=== PATIENT | male | born 1950 | race Hispanic/Latino ===

== ENCOUNTER → 2018-03-16 | Day surgery (SDC) | payer MEDICARE, OTHER ==
[2018-03-14 11:15] LABS: BASOPHILS # (AUTO) 0.1 (0.0-0.1); BASOPHILS % 0.6 % (0.0-1.0); EOSINOPHILS # (AUTO) 0.1 (0.0-0.4); EOSINOPHILS % 1.3 % (0.0-6.0); HEMATOCRIT 40.1 % (38.2-49.6); HEMOGLOBIN 13.9 g/dL (14.0-18.0); LYMPHOCYTES # (AUTO) 1.9 (1.0-3.2); LYMPHOCYTES % 22.4 % (18.0-39.1); MEAN CORPUSCULAR HGB CONC 34.7 g/dL (31-35); MEAN CORPUSCULAR VOLUME 86.4 fL (81-99); MONOCYTES # (AUTO) 0.8 (0.2-0.8); MONOCYTES % 9.3 % (4.4-11.3); NEUTROPHILS # (AUTO) 5.6 (2.1-6.9); PLATELET COUNT 218 x10e3/uL (140-360); RED BLOOD COUNT 4.64 x10e6/uL (4.3-5.7); RED CELL DISTRIBUTION WIDTH 13.1 % (11.7-14.4)
--- NOTE | 2018-03-14 11:31 | Diagnostic Imaging Report ---
PROCEDURE: Frontal and lateral views of the chest. COMPARISON: None. INDICATIONS: PRE OPERATIVE CHEST X-RAY FOR URETERAL STONES FINDINGS: Lines/tubes: None. Lungs: The lungs are well inflated. There is no evidence of pneumonia or pulmonary edema. There is mild streaky left lower lobe opacity. Pleura: There is no pleural effusion or pneumothorax. Heart and mediastinum: Normal heart size. Mild tortuosity of the thoracic aorta. Bones: No acute bony abnormality. Multilevel degenerative changes in thoracic spine. IMPRESSION: Streaky left lower lobe opacity may represent atelectasis or scarring. Recommend followup radiographs in a few weeks to ensure resolution. Dictated by: Rito Shay M.D. on 03/14/2018 at 11:37 Electronically approved by: Rito Shay M.D. on 03/14/2018 at 11:37
[2018-03-14 11:32] LABS: ANION GAP 14.8 mmol/L (8-16); CALCIUM 9.6 mg/dL (8.4-10.2); CREATININE, SERUM 1.76 mg/dL (0.72-1.25); POTASSIUM 3.8 mmol/L (3.5-5.1)
[~2018-03-16] MED LIST: ATORVASTATIN CA20 MG PO; CEFTRIAXONE SOD 1 GM VIAL ONE; CITALOPRAM HBR20 MG PO; DEXAMETHASONE SOD PHOS INJ 4 MG/ML VIAL ONE; EPHEDRINE SULFATE INJ 50 MG/10 ML SYR ONE; FENTANYL CITRATE/PF 100MCG/2 ML INJ ONE; GLYCOPYRROLATE INJ 1MG/ 5 ML SYR ONE; IOPAMIDOL 300MG/ML 50ML INFUS..BTL IV ONE; LIDOCAINE HCL 2% LOCAL INJ 5 ML SDV VIAL INJ ONE; LOSARTAN POTAS100 MG PO; MECLIZINE HCL12.5 MG PO; MIDAZOLAM HCL 2 MG/2 ML VIAL ONE; ONDANSETRON HCL INJ 2 MG/ML VIAL ONE; PANTOPRAZOLE SO40 MG PO; PROPOFOL IV EMULSION 10 MG/ML 20 ML VIAL ONE; SEVOFLURANE INHAL SOLN 250 ML PEN BTL ONE
--- NOTE | 2018-03-20 08:59 | Operative Report ---
DATE OF PROCEDURE: March 16, 2018 PREOPERATIVE DIAGNOSIS: Left distal ureteral stones. POSTOPERATIVE DIAGNOSIS: Left distal ureteral stones. OPERATIVE PROCEDURES PERFORMED: 1. Cystoscopy. 2. Left retrograde pyelogram. 3. Left ureteroscopy with stone extraction. 4. Placement of left ureteral stent. ANESTHESIA: General anesthesia. ESTIMATED BLOOD LOSS: Minimal. INDICATIONS: Mr. Tono Avilez is a 67-year-old gentleman with left flank pain, nausea, and vomiting, found to have a left distal ureteral stone on CAT scan. He now presents for definitive surgical management of this problem. PROCEDURE IN DETAIL: The patient was brought into the operating room and placed in supine position. After administration of general anesthesia, was placed in dorsal lithotomy position, and prepped and draped in usual sterile fashion. Cystourethroscopy was performed using a 21-Burkinan cystoscope. The anterior and posterior urethra were noted to be normal. The prostate revealed evidence of trilobar hyperplasia with moderate elevation of the median bar. The bladder was entered with mild difficulty. Upon entrance into the bladder, the ureteral orifices were in normal anatomical position and produced clear efflux. The left ureteral orifice was initially difficult to cannulate and seemed more narrowed than the right ureteral orifice. There were no mucosal lesions identified. There were grade 1 trabeculations noted throughout the bladder wall. Using a 5-Burkinan open-ended catheter, a left retrograde pyelogram was performed. This revealed narrowing of the distal ureter right at the ureterovesical junction and dilation approximately 2 cm proximal to it by multiple calcifications approximately 1 cm in diameter. A 0.035 wire was placed across the ureteral orifice up into the left renal pelvis under fluoroscopic guidance, and the ureteral orifice dilated with a balloon. Murky material was seen exiting the ureteral orifice upon dilation. Rigid ureteroscopy was then performed. The previous stone was seen in the distal ureter and this was grasped with a basket and removed in its entirety. Multiple smaller stones were irrigated free. Ureteroscopy up to the region of the ureteropelvic junction revealed no other calcifications or stones. Retrograde revealed no obvious calcifications in the renal pelvis. The ureteroscope was subsequently removed and a 6-Burkinan stent for his height was placed such that 1 coil was left in the renal pelvis and the subsequent coil was left in the bladder. The string was allowed to exit the urethral meatus. The bladder was then drained in its entirety, and the cystoscope and sheath were removed. The patient was returned to supine position and anesthesia was reversed. He was transferred to a bed and taken to the postanesthesia care unit in good condition. Of note, the needle and instrument counts were correct at the conclusion of the case. Job#: [id number]
== END | disposition home or self-care (01) ==
LOC: OR 10:12
PROVIDERS: ATTEND Urology
DX: N20.1 Calculus of ureter (principal); N40.0 Benign prostatic hyperplasia without lower urinary tract symptoms; N32.89 Other specified disorders of bladder; I69.354 Hemiplegia and hemiparesis following cerebral infarction affecting left non-dominant side; I10 Essential (primary) hypertension; I45.10 Unspecified right bundle-branch block; E78.00 Pure hypercholesterolemia, unspecified; R00.1 Bradycardia, unspecified; J98.11 Atelectasis; F17.210 Nicotine dependence, cigarettes, uncomplicated; Z88.0 Allergy status to penicillin; Z01.810 Encounter for preprocedural cardiovascular examination; Z01.812 Encounter for preprocedural laboratory examination; Z01.818 Encounter for other preprocedural examination; Z79.82 Long term (current) use of aspirin; Z68.31 Body mass index [BMI] 31.0-31.9, adult
CPT/HCPCS: 36415; 52332; 52352; 71046; 74420; 80048; 85025; 88300; 93005; J0696; J1100; J2001; J2250; J2405; J3490; Q9967

== ENCOUNTER 2024-10-16 14:32 | Inpatient (IN) | payer MEDICARE ==
[~2024-10-16] VITALS: Ht 172.7 cm; Wt 81.6 kg
[~2024-10-16 14:32] MED LIST changes: -CEFTRIAXONE SOD 1 GM VIAL ONE; +COZAAR25 MG PO; -DEXAMETHASONE SOD PHOS INJ 4 MG/ML VIAL ONE; -EPHEDRINE SULFATE INJ 50 MG/10 ML SYR ONE; -FENTANYL CITRATE/PF 100MCG/2 ML INJ ONE; +FLOMAX0.4 MG PO; -GLYCOPYRROLATE INJ 1MG/ 5 ML SYR ONE; -IOPAMIDOL 300MG/ML 50ML INFUS..BTL IV ONE; +LEVOFLOXACIN500 MG PO; -LIDOCAINE HCL 2% LOCAL INJ 5 ML SDV VIAL INJ ONE; +METOPROLOL SUCC50 MG PO; -MIDAZOLAM HCL 2 MG/2 ML VIAL ONE; +MYRBETRIQ50 MG PO; -ONDANSETRON HCL INJ 2 MG/ML VIAL ONE; -PROPOFOL IV EMULSION 10 MG/ML 20 ML VIAL ONE; +PYRIDIUM100 MG PO; -SEVOFLURANE INHAL SOLN 250 ML PEN BTL ONE
[2024-10-16 15:12] VITALS: TEMP 98.5
[2024-10-16 16:15] VITALS: PULSE 69; RESP 18
[2024-10-16] MEDS: ONDANSETRON HCL INJ 2MG/ML 2ML 2 MG/ML VIAL IV PRN (16:16)
[2024-10-16] MEDS: SODIUM CHLORIDE 0.9% 1000ML 1,000 ML IV SCH (16:17)
[2024-10-16] MEDS: Morphine 4mg INJECTION 4 MG/ML INJ IV PRN (16:17)
[2024-10-16 16:29] LABS: BASOPHILS % 0.5 % (0.0-1.0); EOSINOPHILS % 0.5 % (0.0-6.0); HEMATOCRIT 34.7 % (38.2-49.6); HEMOGLOBIN 11.5 g/dL (14.0-18.0); LYMPHOCYTES # (AUTO) 0.9 (1.0-3.2); LYMPHOCYTES % 11.6 % (18.0-39.1); MEAN CORPUSCULAR HGB CONC 33.1 g/dL (31-35); MEAN CORPUSCULAR VOLUME 84.4 fL (81-99); MONOCYTES # (AUTO) 1.1 (0.2-0.8); MONOCYTES % 13.6 % (4.4-11.3); NEUTROPHILS # (AUTO) 5.8 (2.1-6.9); NEUTROPHILS % 73.5 % (38.7-80.0); PLATELET COUNT 237 x10e3/uL (140-360); RED BLOOD COUNT 4.11 x10e6/uL (4.3-5.7); RED CELL DISTRIBUTION WIDTH 14.2 % (11.7-14.4); WHITE BLOOD COUNT 7.87 x10e3/uL (4.8-10.8)
[2024-10-16 16:39] LABS: ALBUMIN 2.8 g/dL (3.5-5.0); ALBUMIN/GLOBULIN RATIO 0.7 (0.8-2.0); ANION GAP 10.9 mmol/L (8-16); BILIRUBIN,TOTAL 0.6 mg/dL (0.2-1.2); CALCIUM 8.6 mg/dL (8.4-10.2); CREATININE, SERUM 1.2 mg/dL (0.72-1.25); TOTAL PROTEIN 6.8 g/dL (6.5-8.1)
[2024-10-16 16:43] LABS: POTASSIUM 2.9 mmol/L (3.5-5.1)
[2024-10-16 17:20] VITALS: PULSE 74; RESP 20; O2SAT 98
[2024-10-16 17:31] VITALS: BP 151/67; PULSE 69; RESP 18; TEMP 98.3; O2SAT 100
[2024-10-16 20:00] VITALS: BP 151/67; PULSE 69; RESP 18; TEMP 98.3; O2SAT 100
[2024-10-16] MEDS: CEFEPIME 2 GM in SODIUM CHLORIDE 0.9% 100 ML IV SCH (21:28)
[2024-10-17] VITALS (9 sets, daily range): BP systolic 129–159; BP diastolic 66–82; PULSE 59–67; RESP 16–20; TEMP 97.5–98.5; O2SAT 99–100
[2024-10-17 05:11] LABS: BASOPHILS % 0.7 % (0.0-1.0); EOSINOPHILS # (AUTO) 0.1 (0.0-0.4); EOSINOPHILS % 1.1 % (0.0-6.0); HEMOGLOBIN 11.2 g/dL (14.0-18.0); LYMPHOCYTES # (AUTO) 0.8 (1.0-3.2); MEAN CORPUSCULAR HEMOGLOBIN 28.5 pg (28-32); MEAN CORPUSCULAR HGB CONC 32.9 g/dL (31-35); MEAN CORPUSCULAR VOLUME 86.5 fL (81-99); MONOCYTES # (AUTO) 0.9 (0.2-0.8); NEUTROPHILS # (AUTO) 3.5 (2.1-6.9); NEUTROPHILS % 65.8 % (38.7-80.0); PLATELET COUNT 197 x10e3/uL (140-360); RED BLOOD COUNT 3.93 x10e6/uL (4.3-5.7); RED CELL DISTRIBUTION WIDTH 14.1 % (11.7-14.4); WHITE BLOOD COUNT 5.35 x10e3/uL (4.8-10.8)
[2024-10-17 05:33] LABS: ANION GAP 12.3 mmol/L (8-16); CALCIUM 8.3 mg/dL (8.4-10.2)
[2024-10-17 05:35] LABS: POTASSIUM 3.3 mmol/L (3.5-5.1)
[2024-10-17] MEDS ORDERED: POTASSIUM CHLORIDE 20 MEQ TAB CR PO STA (07:43)
[2024-10-17] MEDS ORDERED: POTASSIUM CHLORIDE 20 MEQ TAB CR PO ONE (07:43)
[2024-10-17] MEDS: POTASSIUM CHLORIDE 20 MEQ TAB CR PO ONE (08:32)
[2024-10-17] MEDS ORDERED: LIDOCAINE HCL 2% LOCAL INJ 5 ML SDV VIAL INJ ONE (09:28)
[2024-10-17] MEDS ORDERED: FENTANYL CITRATE/PF 100MCG/2 ML INJ ONE (09:28)
[2024-10-17] MEDS ORDERED: PROPOFOL IV EMULSION 10 MG/ML 20 ML VIAL ONE (09:28)
[2024-10-17] MEDS ORDERED: ACETAMINOPHEN 1000 MG/100 ML 100 ML IV ONE (09:28)
[2024-10-17] MEDS ORDERED: SEVOFLURANE INHAL SOLN 250 ML PEN BTL ONE (09:28)
[2024-10-17] MEDS ORDERED: ONDANSETRON HCL INJ 2MG/ML 2ML 2 MG/ML VIAL ONE (11:43)
[2024-10-17] MEDS ORDERED: DEXAMETHASONE SOD PHOS INJ 4 MG/ML SDV ONE (11:43)
[2024-10-17] MEDS ORDERED: EPHEDRINE SULFATE INJ 50 MG/ML VIAL ONE (12:00)
[2024-10-17] MEDS ORDERED: LACTATED RINGER'S 1,000 ML ONE (13:08)
[2024-10-17] MEDS: METOPROLOL SUCCINATE 50 MG TAB XL PO SCH (21:51)
[2024-10-18] VITALS (8 sets, daily range): BP systolic 137–163; BP diastolic 64–78; PULSE 54–76; RESP 16–20; TEMP 97.7–98.4; O2SAT 98–100
[2024-10-18 05:23] LABS: BASOPHILS % 0.2 % (0.0-1.0); HEMATOCRIT 34.7 % (38.2-49.6); HEMOGLOBIN 11.4 g/dL (14.0-18.0); LYMPHOCYTES # (AUTO) 0.6 (1.0-3.2); LYMPHOCYTES % 6.2 % (18.0-39.1); MEAN CORPUSCULAR HEMOGLOBIN 27.9 pg (28-32); MEAN CORPUSCULAR HGB CONC 32.9 g/dL (31-35); MONOCYTES # (AUTO) 0.8 (0.2-0.8); NEUTROPHILS % 85.4 % (38.7-80.0); PLATELET COUNT 239 x10e3/uL (140-360); RED BLOOD COUNT 4.08 x10e6/uL (4.3-5.7); RED CELL DISTRIBUTION WIDTH 14.1 % (11.7-14.4); WHITE BLOOD COUNT 9.38 x10e3/uL (4.8-10.8)
[2024-10-18 06:10] LABS: ANION GAP 12.4 mmol/L (8-16); CALCIUM 8.5 mg/dL (8.4-10.2); CREATININE, SERUM 0.89 mg/dL (0.72-1.25)
[2024-10-18 06:14] LABS: POTASSIUM 3.4 mmol/L (3.5-5.1)
[2024-10-18] MEDS ORDERED: METOPROLOL SUCCINATE 50 MG TAB XL PO SCH (09:00)
[2024-10-19 03:36] VITALS: BP 143/67; PULSE 61; RESP 16; TEMP 98.3; O2SAT 99
[2024-10-19 04:33] VITALS: BP 152/76; PULSE 54; RESP 16; TEMP 97.5; O2SAT 100
[2024-10-19 08:00] VITALS: BP 146/57; PULSE 52; RESP 20; TEMP 97.7; O2SAT 100
[2024-10-19 10:19] VITALS: BP 146/57; PULSE 58; RESP 20; TEMP 97.7; O2SAT 100
[2024-10-19 12:00] VITALS: BP 133/53; PULSE 57; RESP 15; TEMP 98; O2SAT 99
[2024-10-19 16:00] VITALS: BP 142/62; PULSE 61; RESP 16; TEMP 98.2; O2SAT 100
== END 2024-10-19 20:28 | DRG 699 ==
LOC: ER 15:55 → ERHOLD 15:56 → MED/SURG 17:28
PROVIDERS: ADMIT Internal Medicine; ATTEND Internal Medicine
DX: T83.593A Infection and inflammatory reaction due to other urinary stents, initial encounter (principal); I69.354 Hemiplegia and hemiparesis following cerebral infarction affecting left non-dominant side; N17.9 Acute kidney failure, unspecified; N13.6 Pyonephrosis; I12.9 Hypertensive chronic kidney disease with stage 1 through stage 4 chronic kidney disease, or unspecified chronic kidney disease; N18.9 Chronic kidney disease, unspecified; D63.1 Anemia in chronic kidney disease; E78.5 Hyperlipidemia, unspecified; N40.0 Benign prostatic hyperplasia without lower urinary tract symptoms; R31.9 Hematuria, unspecified; D50.0 Iron deficiency anemia secondary to blood loss (chronic); I48.91 Unspecified atrial fibrillation; R19.7 Diarrhea, unspecified; E87.6 Hypokalemia; E83.42 Hypomagnesemia; Y83.1 Surgical operation with implant of artificial internal device as the cause of abnormal reaction of the patient, or of later complication, without mention of misadventure at the time of the procedure; Z96.0 Presence of urogenital implants; Z90.79 Acquired absence of other genital organ(s); E66.9 Obesity, unspecified; Z68.27 Body mass index [BMI] 27.0-27.9, adult; Z88.0 Allergy status to penicillin
CPT/HCPCS: 36415; 50590; 74018; 80048; 80053; 82948; 83970; 84550; 85025; 87086; 87186; 88300; 94799; 99252; 99283; C1758; C1769; C2617; J0692; J1100; J2003; J2270; J2405; J7030; J7050